=== PATIENT | female | born 1990 | race Two or more races ===

== ENCOUNTER 2016-08-15 15:31 | Emergency (ER) | payer SELFPAY ==
[~2016-08-15] VITALS: Ht 157.5 cm; Wt 69.9 kg
[2016-08-15 18:48] VITALS: BP 94/57
[2016-08-15 19:00] VITALS: BP 94/57
--- NOTE | 2016-08-15 19:13 | Emergency Room Report ---
History of Present Illness General Chief Complaint: Complications Source: Patient Present Illness HPI 25 YO Female presents to the ED c/o vaginal bleeding: Spotting dark red blood x 1 day with mild cramping. pt is , normal previous pregnancies. She denies nausea, vomiting or abdominal tenderness. Patient denies fevers or chills patient denies dysuria, hematuria or vaginal discharge other than spotting. She denies trauma or fall. Denies CP, Palpitations, LOC, AMS, dizziness, Changes in Vision, Sensation, paresthesias, or a sudden severe headache. Allergies: Coded Allergies: No Known Allergies (Unverified , 08/15/16) Patient History Now: No Nursing Documentation-[facility] Past Medical History: No Stated History Review of Systems All Other Systems: negative except mentioned in HPI Physical Exam Vital Signs Date Time Temp Pulse Resp B/P Pulse Ox O2 Delivery O2 Flow Rate FiO2 08/15/16 15:37 98.4 81 15 110/64 96 Room Air Sp02 EP Interpretation: reviewed, normal General Appearance: no apparent distress, alert, GCS 15, non-toxic Head: normocephalic, atraumatic Eyes: bilateral eye PERRL, bilateral eye normal inspection ENT: hearing grossly normal, normal pharynx, no angioedema, normal voice Neck: full range of motion, supple/symm/no masses Respiratory: lungs clear, normal breath sounds, speaking full sentences Cardiovascular #1: regular rate, rhythm, no edema Gastrointestinal: normal bowel sounds, non tender, soft, no guarding, no rebound Rectal: deferred Genitourinary: normal inspection, no CVA tenderness, adnexa normal, cervix normal, os closed, other - scant dark blood noted in the vaginal vault, os is closed. Musculoskeletal: back normal, gait/station normal, normal range of motion Neurologic: alert, oriented x3, responsive, motor strength/tone normal, sensory intact, speech normal Psychiatric: judgement/insight normal, memory normal, mood/affect normal Skin: normal color, no rash, warm/dry, well hydrated Lymphatic: no adenopathy Medical Decision Making PA Attestation Dr. Lincoln is my supervising Physician whom patient management has been discussed with. Diagnostic Impression: Primary Impression: Spotting during in first trimester Additional Impressions: Threatened Subchorionic hematoma in first trimester ER Course Pt. presents to the ED c/o vaginal bleeding: Spotting dark red blood x 1 day with mild cramping. Denies Fall/trauma -pt is , normal previous pregnancies. Ddx considered but are not limited to: Fibroid, ectopic , subchorionic hemorrhage, placenta previa, placenta abruptio, Spontaneous , Vital signs: are WNL, pt. is afebrile Pelvic Exam: scant dark blood noted in the vaginal vault, os is closed. H&PE are most consistent with: spotting during early , possible threatened . ORDERS: -Urine hcg- Positive -serum Hcg Quant: 89,720 - Blood/RH type and screen- see attached labs -Pelvic US complete- normal intrauterine estimated at 9 weeks gestation. HR of 175 bpm, suspicious for subchorionic blood. ED INTERVENTIONS: None at this time. -d/w pt. results of US, and follow up instructions with OBGYN , in addition to bed rest. d/w pt. to return to ED with worsening or new symptoms. DISCHARGE: At this time pt. is stable for d/c to home. Will provide printed patient care instructions, and any necessary prescriptions. Care plan and follow up instructions have been discussed with the patient prior to discharge. Labs Test 08/15/16 16:20 Urine HCG, Qualitative Positive Human Chorionic Gonadotropin, Quant 60414 mIU/mL Last Vital Signs Date Time Temp Pulse Resp B/P Pulse Ox O2 Delivery O2 Flow Rate FiO2 08/15/16 19:00 98.4 73 15 94/57 96 Room Air Disposition: HOME, SELF-CARE Condition: Stable Referrals: NOT CHOSEN IPA/MD,REFERRING (PCP) Patient Instructions: Subchorionic Hematoma, Vaginal Bleeding During , First Trimester, [id number] Additional Instructions: Take medications as directed. Follow up with OBGYN in 3 days Return sooner to ED if new symptoms occur, or current symptoms become worse. - Please note that this Emergency Department Report was dictated using [employer] specialist technology software, occasionally this can lead to erroneous entry secondary to interpretation by the dictation equipment. Kaleigh Izaguirre Aug 15, 2016 19:13
--- NOTE | 2016-08-17 11:11 | Diagnostic Imaging Report ---
Indication: Pain, vaginal spotting, positive test Technique: Transabdominal and transvaginal images Comparison: None Findings: Uterus measures 10.4 cm length by 6.6 cm AP. Within the endometrium, there is a gestational sac containing a single live intrauterine . This demonstrates a heart rate of 168 beats for minute. [place]-rump length is 27 mm, corresponding to estimated gestational age 9 weeks 3 days. Estimated date of delivery is 04/02/2017. Estimated gestational age by dates is 7 weeks one day. No subchorionic hemorrhage demonstrated. No myometrial abnormality. Small cervical nabothian cysts incidentally noted. Right ovary measures 3.4 cm length. The left ovary measures 4 cm in length. Bilateral ovarian blood flow is noted. No adnexal mass. No free pelvic fluid demonstrated. Impression: 9 week 3 day, by crown-rump length measurement, single live intrauterine . No unusual features. Incidental finding cervical nabothian cyst
== END 2016-08-15 19:00 | disposition home or self-care (01) ==
LOC: EMR 16:12
DX: O26.851 Spotting complicating pregnancy, first trimester (principal); O20.0 Threatened abortion; O43.891 Other placental disorders, first trimester; Z3A.09 9 weeks gestation of pregnancy
CPT/HCPCS: 36415; 76856; 81025; 84702; 86850; 86900; 86901; 99284